=== PATIENT | male | born 1980 | race Caucasian/White ===

== ENCOUNTER 2019-04-01 14:30 | Emergency (ER) | payer OTHER ==
[2019-04-01 14:55] LABS: #Basophils 0.1 thou/uL (0.0-0.2); #Eosinphils 0.1 thou/uL (0.0-0.7); #Lymphocytes 1.7 thou/uL (1.20-3.40); #Monocytes 0.8 thou/uL (0.11-0.59); #Neutrophils 12.3 thou/uL (1.40-6.50); %Basophils 0.8 % (0.0-1.0); %Eosinophils 0.6 % (0.0-10.0); %Lymphocytes 11.4 % (21.0-51.0); %Monocytes 5.4 % (0.0-10.0); %Neutrophils 81.8 % (42.0-75.0); Mean Corpuscular HGB CONC 33.3 g/dL (32.0-36.0); Mean Corpuscular Hemoglobin 29.7 pg (27.0-31.0); Mean Corpuscular Volume 89.3 fL (78.0-98.0); Mean Platelet Volume 6.8 fL (7.4-10.4); Platelet Count 237 thou/uL (130-400); RBC Distribution Width 11.4 % (11.5-14.5); Red Blood Cell (RBC) Count 5.04 mill/uL (4.70-6.10)
[2019-04-01 15:09] LABS: ALT (SGPT) 42 U/L (8-55); AST (SGOT) 33 U/L (5-34); Albumin 4.9 g/dL (3.5-5.0); Alkaline Phosphatase 62 U/L (40-110); Anion Gap 17 mmol/L (10-20); BUN (Urea Nitrogen) 11 mg/dL (8.9-20.6); Bilirubin, Total 0.6 mg/dL (0.2-1.2); Calc. Creatinine Clearance 0 mL/min (70-130); Calcium 9.8 mg/dL (7.8-10.44); Carbon Dioxide 26 mmol/L (22-29); Chloride 103 mmol/L (98-107); Estimated GFR-MDRD Greater than 90; Globulin 2.7 g/dL (2.4-3.5); Glucose 114 mg/dL (70-105); Lipase 15 U/L (8-78); Protein, Total 7.6 g/dL (6.0-8.3); Sodium 142 mmol/L (136-145)
--- NOTE | 2019-04-01 15:41 | CT ---
CT CHEST, ABDOMEN AND PELVIS WITH IV CONTRAST: 04/01/19 Axial tomograms obtained with multiplanar reconstruction. Trauma protocol followed. INDICATIONS: Trauma, fall from roof. CT CHEST: The lungs are well aerated and are clear. There is no evidence of pneumothorax or effusion. No eviden ce of contusion or infiltrate. Mediastinum unremarkable. The bony thorax appears intact. IMPRESSION: No acute chest injury identified. CT ABDOMEN AND PELVIS: Liver, spleen, pancreas, and kidneys unremarkable. No solid organ injuries identified. Bowel loops un remarkable. No free fluid. Abdominal aorta unremarkable. The bony pelvis appears intact. IMPRESSION: No evidence of acute abdominal injury. CT THORACIC AND LUMBAR SPINE: Sagittal and coronal images obtained of the thoracic and lumbar spine. The thoracic and lumbar vertebrae maintain normal height and alignment. No evidence of compression fr acture. No other spine fracture identified. IMPRESSION: Unremarkable CT thoracic and lumbar spine. POS: [facility]
== END 2019-04-01 15:35 | disposition home or self-care (01) ==
LOC: SCSER 14:30
DX: S20.211A Contusion of right front wall of thorax, initial encounter (principal); Z87.891 Personal history of nicotine dependence; W17.89XA Other fall from one level to another, initial encounter
CPT/HCPCS: 71260; 74177; 80053; 83690; 85025

== ENCOUNTER 2019-04-15 12:57 | Outpatient (CLI) | payer OTHER ==
--- NOTE | 2019-04-15 13:28 | CT ---
CT BRAIN WITHOUT CONTRAST: Date: 04/15/19 HISTORY: Acute post-traumatic headache. Patient fell from roof on 04/01/19. FINDINGS: No evidence of infarct, hemorrhage, midline shift, or abnormal extra-axial fluid collections are seen . The ventricular size is normal and the basilar cisterns are patent. The bony calvarium is intact. T here is mucosal disease in the paranasal sinuses. IMPRESSION: No CT evidence of acute intracranial process. POS: [facility]
== END 2019-04-15 12:58 | disposition home or self-care (01) ==
LOC: CT 12:57
PROVIDERS: ATTEND Family Medicine
DX: G44.319 Acute post-traumatic headache, not intractable (principal)
CPT/HCPCS: 70450